=== PATIENT | female | born 1990 | race Caucasian/White ===

== ENCOUNTER 2017-09-08 11:25 | Emergency (ER) | payer BC ==
[2017-09-08 12:25] VITALS: BP 135/85
--- NOTE | 2017-09-08 12:44 | UC ---
Throat Pain/Nasal Josh HPI - HPI Summary HPI Summary: Patient to the urgent care today with 3 days sore throat. Low-grade temp at 100.7 no recent illness exposures did not take any Tylenol or ibuprofen prior to arrival - History of Current Complaint Chief Complaint: UCRespiratory Stated Complaint: ST Time Seen by Provider: 09/08/17 12:13 Hx Obtained From: Patient Hx Last Menstrual Period: 08/23 ?: No Onset/Duration: Sudden Onset, Lasting Days - 3 Pain Intensity: 7 Pain Scale Used: 0-10 Numeric Cough: None - Allergies/Home Medications Allergies/Adverse Reactions: Allergies Allergy/AdvReac Type Severity Reaction Status Date / Time No Known Allergies Allergy Verified 09/08/17 12:26 Home Medications: Home Medications Norgestimate-Ethinyl Estradiol [Trinessa Tablet] 1 each PO QPM 09/08/17 [ History Confirmed 09/08/17] PMH/Surg Hx/FS Hx/Imm Hx Previously Healthy: Yes - Surgical History Surgical History: None - Social History Occupation: Employed Full-time Lives: With Family Alcohol Use: Occasionally Substance Use Type: None Smoking Status (MU): Never Smoked Tobacco - Immunization History Most Recent Influenza Vaccination: September 2013 Review of Systems Constitutional: Fever, Fatigue Skin: Negative Eyes: Negative ENT: Sore Throat Respiratory: Negative Cardiovascular: Negative Gastrointestinal: Negative Genitourinary: Negative Motor: Negative Neurovascular: Negative Musculoskeletal: Negative Neurological: Negative Psychological: Negative Is Patient Immunocompromised?: No All Other Systems Reviewed And Are Negative: Yes Physical Exam Triage Information Reviewed: Yes Appearance: No Pain Distress, Well-Nourished, Ill-Appearing - mild Vital Signs: Initial Vital Signs Temp 100.7 F 09/08/17 12:18 Pulse 115 09/08/17 12:18 Resp 24 09/08/17 12:18 BP 135/85 09/08/17 12:18 Pulse Ox 99 09/08/17 12:18 Vital Signs Reviewed: Yes Eye Exam: Normal Eyes: Positive: Conjunctiva Clear ENT Exam: Normal ENT: Positive: Normal ENT inspection, Hearing grossly normal, Pharyngeal erythema, TMs normal, Trismus. Negative: Nasal congestion, Tonsillar swelling, Dental tenderness, Sinus tenderness, Uvula midline Dental Exam: Normal Neck exam: Normal Neck: Positive: Supple, Nontender Respiratory Exam: Normal Respiratory: Positive: Chest non-tender, Lungs clear, No respiratory distress, No accessory muscle use Cardiovascular Exam: Normal Cardiovascular: Positive: RRR, No Murmur, Pulses Normal, Brisk Capillary Refill Musculoskeletal Exam: Normal Musculoskeletal: Positive: Strength Intact, ROM Intact, No Edema Neurological Exam: Normal Neurological: Positive: Alert, Muscle Tone Normal Psychological Exam: Normal Psychological: Positive: Normal Response To Family, Age Appropriate Behavior Skin Exam: Normal Diagnostics - Laboratory Diagnostic Studies Completed/Ordered: RST (-) Throat Pain/Nasal Course/Dx - Course Assessment/Plan: Increase fluids rest Tylenol ibuprofen for pain. may use throat lozenges or sprays for discomfort. zinc lozenges may be also helpful in decreasing the duration of viral pharyngitis. Follow with PCP when necessary - Differential Dx/Diagnosis Provider Diagnoses: Viral Pharyngitis Discharge - Sign-Out/Discharge Documenting (check all that apply): Patient Departure - Discharge Plan Condition: Stable Disposition: HOME Patient Education Materials: Acetaminophen (By mouth), Ibuprofen (By mouth), Pharyngitis (ED), Viral Syndrome (ED) Referrals: [facility] [Outside] - If Needed - Billing Disposition and Condition Condition: STABLE Disposition: Home
== END 2017-09-08 13:05 | disposition home or self-care (01) ==
LOC: UCCORT 11:25
DX: J02.8 Acute pharyngitis due to other specified organisms (principal)
CPT/HCPCS: 87651; 99201; G0463